=== PATIENT | female | born 1980 | race Caucasian/White ===

== ENCOUNTER 2016-09-09 17:34 | Emergency (ER) | payer MEDICAID ==
[~2016-09-09] VITALS: Ht 165.1 cm; Wt 90.0 kg
[~2016-09-09 17:34] MED LIST: PENI500T PO; VICOTAB4 PO; Z.0.NO CURRENT MEDS
[2016-09-09 17:38] VITALS: BP 136/89; PULSE 70; RESP 16; TEMP 98; O2SAT 97
== END 2016-09-09 18:36 | disposition left against medical advice (07) ==
LOC: NED 17:34
DX: R05 Cough (principal)
CPT/HCPCS: 99281